=== PATIENT | female | born 1955 | race Caucasian/White ===

== ENCOUNTER 2016-10-20 10:38 | Outpatient (CLI) | payer OTHER, BC | END 2016-10-20 10:39 | disposition home or self-care (01) | DX: S80.02XA Contusion of left knee, initial encounter (principal) ==

== ENCOUNTER 2017-02-09 08:29 | Outpatient (CLI) | payer BC ==
--- NOTE | 2017-02-09 12:56 | DEXA Report ---
DEXA SCAN: 02/09/2017 CLINICAL INDICATION: Postmenopausal. TECHNIQUE: Dual energy x-ray absorptiometry (DXA) was performed on a [employer] system. Regions measured are the AP spine, femoral neck, and, if needed, forearm. COMPARISON: None. In accordance with the International Society for Clinical Densitometry (ISCD) guidelines, data from previous exams may be reanalyzed using current recommendations and techniques. This is done to allow a more accurate basis for comparison with the current study. FINDINGS: The data for the lumbar spine is as follows: REGION BMD (g/cm/cm) T-SCORE Z-SCORE L1 1.049 -0.7 1.2 L2 1.149 -0.4 1.4 L3 1.204 0.0 1.9 L4 1.145 -0.5 1.4 TOTAL 1.140 -0.3 1.5 NOTE: All evaluable vertebrae are used for classification. The data for the hip is as follows: REGION BMD (g/cm/cm) T-SCORE Z-SCORE Neck 0.937 -0.7 0.9 TOTAL 1.046 0.3 1.7 NOTE: The femoral neck or total proximal femur, whichever is lowest, is used for classification. IMPRESSION: THE WHO CLASSIFICATION BASED ON THE INTERNATIONAL REFERENCE STANDARD IS NORMAL. THE FRACTURE RISK IS NOT INCREASED. RECOMMENDATION: Patients with diagnosis of osteoporosis or osteopenia should have regular bone mineral density assessment. For those eligible for Medicare, routine testing is allowed once every 2 years. Testing frequency can be increased for patients who have rapidly progressing disease or for those who are receiving medical therapy to restore bone mass. COMMENT: World Health Organization (WHO) definitions for osteoporosis and osteopenia: NORMAL BMD: T-score at -1.0 or higher, fracture risk is low. OSTEOPENIA BMD: T-score between -1.0 and -2.5, fracture risk is increased. OSTEOPOROSIS BMD: T-score at -2.5 or lower, fracture risk high. National Osteoporosis Foundation recommends: 1. Obtain adequate dietary calcium (at least 1200 mg per day) and vitamin D (400 -800 international units per day). 2. Participate, as appropriate, in regular weightbearing and muscle- strengthening exercise. 3. Avoid tobacco use and reduce alcohol and caffeine intake. 4. For more detailed information see the website at www.NOF.org.A MTDD
== END 2017-02-09 08:30 | disposition home or self-care (01) ==
LOC: DI 08:29
PROVIDERS: ATTEND Physician Assistant
DX: N95.8 Other specified menopausal and perimenopausal disorders (principal)
CPT/HCPCS: 77080

== ENCOUNTER 2020-01-08 06:36 | Outpatient (CLI) | payer MEDICARE ==
--- NOTE | 2020-01-08 17:44 | Ultrasound Report ---
PROCEDURE: Abdomen Limited INDICATIONS: RT UPPER QUAD PAIN TECHNIQUE: Real-time focused scanning was performed of the abdomen, with image documentation. COMPARISON: None FINDINGS: The liver measures 16.8 cm in length and demonstrates slightly increased echogenicity. The gallbladder wall measures 1.7 mm in diameter. No stones, sludge, pericholecystic fluid, or sonogr aphic Yates sign. No intrahepatic biliary ductal dilatation. The common bile duct measures 5 mm in d iameter. The right kidney is 8.8 cm in length with a cortex thickness of 1.1 cm. No hydronephrosis. IMPRESSION: 1. Slightly increased hepatic echogenicity. Differential considerations include hepatic steatosis alt katie other sources of hepatocellular dysfunction could be considered in the differential. 2. No cholelithiasis or findings to suggest choledocholithiasis or acute cholecystitis. Reviewed by: Gretchen Muniz MD on 01/08/2020 5:42 PM PDT Approved by: Gretchen Muniz MD on 01/08/2020 5:42 PM PDT Station ID: [id number]
== END 2020-01-08 06:37 | disposition home or self-care (01) ==
LOC: DI 06:36
PROVIDERS: ATTEND Physician Assistant
DX: R10.11 Right upper quadrant pain (principal); E78.5 Hyperlipidemia, unspecified; R73.9 Hyperglycemia, unspecified
CPT/HCPCS: 36415; 76705; 80053; 80061; 83036; 83721; 85025

== ENCOUNTER 2023-09-01 10:29 | Outpatient (CLI) | payer MEDICARE ==
--- NOTE | 2023-09-01 15:44 | Ultrasound Report ---
PROCEDURE: Soft Tissue Head or Neck INDICATIONS: THYROID NODULE TECHNIQUE: Real-time scanning was performed of the thyroid gland, with image documentation. COMPARISON: None FINDINGS: Right: Thyroid lobe measures 4.4 x 2.0 x 2.2 cm, and is homogeneous in echotexture. Left: Thyroid lobe measures 3.8 x 1.6 x 1.3 cm, and is homogenous in echotexture. Isthmus: 0.4 cm thick. Nodule number: One Location: Right mid Size: 2.9 x 1.9 x 2.0 cm. Composition: Solid (2 points). Echogenicity: Hypoechoic (2 points). Shape: wider than tall (0 points). Margins: Smooth (0 points). Echogenic foci: None (0 points). Total points: 4 ACR TI-RADS category: 4 Nodule number: Two Location: Left mid Size: 1.2 x 0.8 x 0.8 cm. Composition: Solid (2 points). Echogenicity: Hypoechoic (2 points). Shape: wider than tall (0 points). Margins: Smooth (0 points). Echogenic foci: None (0 points). Total points: 4 ACR TI-RADS category: 4 IMPRESSION: 1. T4 nodule within the right thyroid lobe. Given size, FNA is recommended. 2. T4 nodule within the left thyroid lobe. Given size, follow-up is recommended at one, 2, 3, and 5 y ears. ACR TI-RADS definitions and recommendations: TI-RADS 1 (benign): 0 points. FNA not needed. TI-RADS 2 (not suspicious): 2 points. FNA not needed. TI-RADS 3 (mildly suspicious): 3 points. "FNA if 2.5 cm or larger, follow up if 1.5 cm or larger (at 1, 3, and 5 years). TI-RADS 4 (moderately suspicious): 4-6 points. "FNA if 1.5 cm or larger, follow up if 1 cm or larger (at 1, 2, 3, and 5 years). TI-RADS 5 (highly suspicious): 7 points or more. "FNA if 1 cm or larger, follow up if 0.5 cm or larger (every year for 5 years). Reviewed by: Gretchen Muniz MD on 09/01/2023 3:43 PM PDT Approved by: Gretchen Muniz MD on 09/01/2023 3:43 PM PDT Station ID: [id number]
== END 2023-09-01 10:30 | disposition home or self-care (01) ==
LOC: DI 10:29
PROVIDERS: ATTEND Registered Nurse
DX: E04.2 Nontoxic multinodular goiter (principal)